=== PATIENT | male | born 1935 | race Caucasian/White ===

== ENCOUNTER 2017-02-08 10:44 | Emergency (ER) | payer MEDICARE, OTHER ==
[2017-02-08 11:15] VITALS: BP 145/76
[2017-02-08] MEDS ORDERED: Bacitracin Oint 1 GM U/D Packet TOP ONE (11:52)
[2017-02-08] MEDS ORDERED: Lidocaine 1% with EPINEPHrine 1:100,000 50 ML MDV SUBCUT STA (11:52)
--- NOTE | 2017-02-08 12:37 | EDM.PDOC ---
ED HPI Skin/Rash - General Chief Complaint: Laceration Stated Complaint: CUT LT KNEE Time Seen by Provider: 02/08/17 11:52 Source: Reports: Patient, RN notes reviewed History Limitations: Reports: No limitations - History of Present Illness INITIAL COMMENTS - FREE TEXT/NARRATIVE: 81-year-old gentleman presents emergency department today with a laceration to his left leg this occurred when he was cutting wood unclear if it was part of the chain saw or combination of tree that injured his leg, other than the laceration he has no particular complaints has full range of motion of the knee can walk without difficulty no tenderness to palpation Past Medical History Musculoskeletal History: Reports: Other (see below) Other Musculoskeletal History: laceration R knee 2.5 inches Dermatologic History: Reports: Other (see below) Other Dermatologic History: laceration L knee Social & Family History - Tobacco Use Smoking Status *Q: Never Smoker - Caffeine Use Caffeine Use: Reports: Coffee - Alcohol Use Days Per Week of Alcohol Use: 7 Number of Drinks Per Day: 1 Total Drinks Per Week: 7 - Recreational Drug Use Recreational Drug Use: No ED ROS GENERAL - Review of Systems Review Of Systems: See Below Constitutional: Reports: no symptoms Musculoskeletal: Reports: no symptoms Skin: Reports: wound ED EXAM, SKIN/RASH Exam: See Below Exam Limited By: No limitations General Appearance: alert, WD/WN, no apparent distress Respiratory/Chest: no respiratory distress Front/Back Body Diagram: 1 - 6 cm laceration full-thickness could not appreciate any underlying structure abnormality full range of motion of the knee no tenderness to palpation, pupils 2+ ED SKIN PROCEDURES - Laceration/Wound Repair Left Leg Lac/wound length in cm: 6 Appearance: subcutaneous, linear, mildly contaminated Distal NVT: neuro & vascular intact, no tendon injury Anesthetic type: local Local anesthesia - Lidocaine (Xylocaine): 1% with epi Local anesthetic volume: 5cc Skin prep: chlorhexidine (hibiciens), saline Saline irrigation (cc's): 250 Exploration/Debridement/Repair: wound explored, in a bloodless field, explored to base, minimal debridement Closed with: sutures # of sutures: 7 Suture type: interrupted Suture size: 4-0 # of sutures: 4 Repaired with: vicryl Tetanus status addressed: Yes (2015) Complications: No Course - Vital Signs Last Recorded V/S: Last Vital Signs Temp 97.5 F 02/08/17 11:14 Pulse 73 02/08/17 11:14 Resp 18 02/08/17 11:14 BP 145/76 H 02/08/17 11:14 Pulse Ox 97 02/08/17 11:14 - Orders/Labs/Meds Meds: Medications Discontinued Medications Generic Name Dose Route Start Last Admin Trade Name Sadie PRN Reason Stop Dose Admin Bacitracin 1 dose 02/08/17 11:52 02/08/17 12:02 Bacitracin Oint 1 Gm TOP 02/08/17 11:53 1 dose ONETIME ONE Administration Lidocaine/Epinephrine 20 ml 02/08/17 11:52 02/08/17 12:02 Xylocaine 1% With Epinephrine 1:100,000 SUBCUT 02/08/17 11:53 20 ml NOW STA Administration Departure - Departure Time of Disposition: 12:36 Disposition: Home, Self-Care 01 Condition: good Clinical Impression: Laceration of left knee Qualifiers: Encounter type: initial encounter Qualified Code(s): S81.012A - Laceration without foreign body, left knee, initial encounter Forms: ED Department Discharge Additional Instructions: suture removal in 10 days, follow wound care instruction sheet, follow up with your primary care for suture removal - Assessment/Plan Plan: Assessment Acuity = acute Site and laterality = 6 cm laceration left knee Etiology = secondary to trauma while cutting wood Manifestations = none Location of injury = home Lab values = none Plan suture removal in 10 days, follow wound care instruction sheet Patient was in agreement with the plan all questions were answered, they were instructed to return to the emergency department or call for worsening symptoms. This note was dictated using [employer] voice recognition software please call with any questions.
== END 2017-02-08 12:47 | disposition home or self-care (01) ==
LOC: JP.ED 10:44
DX: S81.012A Laceration without foreign body, left knee, initial encounter (principal); W29.3XXA Contact with powered garden and outdoor hand tools and machinery, initial encounter
CPT/HCPCS: 12002; 99282-25; 99283-25